=== PATIENT | female | born 1990 | race Caucasian/White ===

== ENCOUNTER 2019-05-26 12:41 | Emergency (ER) | payer SELFPAY ==
[~2019-05-26] VITALS: Ht 154.9 cm; Wt 81.7 kg
[~2019-05-26 12:41] MED LIST: Flagyl500 MG PO
[2019-05-26 13:29] LABS: BASOPHILS ABSOLUTE AUTO 0.04 K/mm3 (0.00-0.23); BASOPHILS PERCENT AUTO 1 % (0-2); EOSINOPHILS ABSOLUTE AUTO 0.01 K/mm3 (0.00-0.68); EOSINOPHILS PERCENT AUTO 0 % (0-6); Hemoglobin 14.8 g/dL (11.5-16.0); IMMATURE GRAN ABSOLUTE AUTO 0.01 K/mm3 (0.00-0.10); IMMATURE GRAN PERCENT AUTO 0 % (0-1); LYMPHOCYTES ABSOLUTE AUTO 1.41 K/mm3 (0.84-5.20); LYMPHOCYTES PERCENT AUTO 18 % (21-46); MONOCYTES ABSOLUTE AUTO 0.49 K/mm3 (0.16-1.47); MONOCYTES PERCENT AUTO 6 % (4-13); Mean Corpuscular HGB 29.1 pg (26.0-34.0); Mean Corpuscular HGB Conc 32.2 g/dL (31.5-36.5); Mean Corpuscular Volume 91 fL (80-100); Mean Platelet Volume 10.3 fL (9.1-12.4); NEUTROPHILS ABSOLUTE AUTO 5.96 K/mm3 (1.96-9.15); NEUTROPHILS PERCENT AUTO 75 % (41-73); Platelet Count 294 K/mm3 (150-400); RDW Coefficient Variation 12.8 % (11.7-14.2); RDW Standard Deviation 42.3 fL (35.1-46.3); Red Blood Cell Count 5.08 M/mm3 (3.80-5.20); White Blood Cell Count 7.92 K/mm3 (4.00-11.30)
[2019-05-26 13:45] LABS: Source, Urine Clean Catch
[2019-05-26 13:48] LABS: Bilirubin, Urine Neg (Neg); Blood, Urine 5+ (Neg); Glucose Qualitative, Urine Neg (Neg); Ketones, Urine 1+ (Neg); Leukocyte Esterase, Urine 3+ (Neg); Nitrite, Urine Neg (Neg); Protein, Urine 3+ (Neg); Specific Gravity, Urine 1.025 (1.003-1.022); Urobilinogen, Urine NORM (Normal)
[2019-05-26 13:57] LABS: Beta HCG, Quantitative, Serum 134 mIU/mL (0-3)
[2019-05-26 13:58] LABS: Alanine Aminotransfer (ALT/SGP 51 U/L (12-78); Albumin, Blood 4.1 g/dL (3.4-5.0); Albumin/Globulin Ratio 0.9 (0.8-1.8); Alk Phos 89 U/L (50-136); Anion Gap 8 mmol/L (6-16); Aspartate Aminotrans (AST/SGOT 25 U/L (12-37); Blood Urea Nitrogen 7 mg/dL (8-24); Bun/Creatinine Ratio 11.3 (12.0-20.0); CO2, Blood 25 mmol/L (21-32); Calcium, Blood 9.7 mg/dL (8.5-10.1); Chloride, Blood 110 mmol/L (98-108); Creatinine, Blood 0.62 mg/dL (0.40-1.00); Globulin, Blood 4.6 g/dL (2.2-4.0); Glomerular Filtration Rate >60 (60-); Glucose, Blood 92 mg/dL (70-99); Potassium, Blood 3.6 mmol/L (3.5-5.5); Sodium, Blood 143 mmol/L (136-145); Total Protein, Blood 8.7 g/dL (6.4-8.2)
[2019-05-26 14:06] LABS: Appearance, Urine Bloody (Clear); Color, Urine Red (P-Yellow)
[2019-05-26 14:08] LABS: Bacteria Mod /hpf; Red Blood Cells, Urine TNTC /hpf (0-2); Squamous Epithelial Cells Few /hpf (Few); White Blood Cells, Urine 50-100 /hpf (0-5)
[2019-05-26] MEDS ORDERED: IBUP600 PO (14:46)
== END 2019-05-26 14:52 | disposition home or self-care (01) ==
LOC: ER 12:41
PROVIDERS: Physician Assistant
DX: O03.9 Complete or unspecified spontaneous abortion without complication (principal); O02.81 Inappropriate change in quantitative human chorionic gonadotropin (hCG) in early pregnancy
CPT/HCPCS: 36415; 76801; 76817; 80053; 81001; 81025; 84702; 85025; 87086; 99284-25

== ENCOUNTER → 2020-04-03 | Outpatient (CLI) | payer SELFPAY ==
[~2020-04-03] MED LIST changes: +IBUP600 PO
== END | disposition home or self-care (01) ==
LOC: LAB EV 12:40 → LAB SHORT 12:40
DX: R07.9 Chest pain, unspecified (principal)
CPT/HCPCS: 85379

== ENCOUNTER → 2025-01-04 | Outpatient (CLI) | payer OTHER ==
[2025-01-04 14:39] LABS: BASOPHILS ABSOLUTE AUTO 0.02 K/mm3 (0.00-0.23); BASOPHILS PERCENT AUTO 0 % (0-2); EOSINOPHILS ABSOLUTE AUTO 0.02 K/mm3 (0.00-0.68); EOSINOPHILS PERCENT AUTO 0 % (0-6); Hematocrit 39.8 % (33.0-51.0); Hemoglobin 13.5 g/dL (11.5-16.0); IMMATURE GRAN ABSOLUTE AUTO 0.03 K/mm3 (0.00-0.10); IMMATURE GRAN PERCENT AUTO 0 % (0-1); LYMPHOCYTES ABSOLUTE AUTO 1.31 K/mm3 (0.84-5.20); LYMPHOCYTES PERCENT AUTO 15 % (21-46); MONOCYTES ABSOLUTE AUTO 0.38 K/mm3 (0.16-1.47); MONOCYTES PERCENT AUTO 4 % (4-13); Mean Corpuscular HGB Conc 33.9 g/dL (31.5-36.5); Mean Corpuscular Volume 87 fL (80-100); NEUTROPHILS ABSOLUTE AUTO 7.21 K/mm3 (1.96-9.15); NEUTROPHILS PERCENT AUTO 81 % (41-73); NRBC ABSOLUTE 0.00 K/mm3 (0.00-0.02); NRBC Auto 0.0 /100 WBC (0.0-0.2); Platelet Count 277 K/mm3 (150-400); RDW Coefficient Variation 13.1 % (11.7-14.2); RDW Standard Deviation 40.9 fL (35.1-46.3)
[2025-01-04 14:49] LABS: Alanine Aminotransfer (ALT/SGP 63.0 U/L (12-78); Albumin, Blood 3.8 g/dL (3.4-5.0); Albumin/Globulin Ratio 1.0 (0.8-1.8); Anion Gap 15.0 mmol/L (3-11); Aspartate Aminotrans (AST/SGOT 40.0 U/L (12-37); Bilirubin, Total 1.3 mg/dL (0.1-1.0); Blood Urea Nitrogen 8.0 mg/dL (8-24); CO2, Blood 25.0 mmol/L (21-32); Calcium, Blood 9.3 mg/dL (8.5-10.1); Chloride, Blood 104.0 mmol/L (98-108); Creatinine, Blood 0.69 mg/dL (0.40-1.00); Globulin, Blood 4.0 g/dL (2.2-4.0); Glucose, Blood 130.0 mg/dL (70-99); Potassium, Blood 3.8 mmol/L (3.5-5.5); Sodium, Blood 140.0 mmol/L (136-145); Total Protein, Blood 7.8 g/dL (6.4-8.2)
== END | disposition home or self-care (01) ==
LOC: LAB SHORT 14:35 → LAB 14:35
PROVIDERS: Physician Assistant Medical
DX: R00.0 Tachycardia, unspecified (principal)
CPT/HCPCS: 80053; 85025

== ENCOUNTER → 2025-01-15 | Outpatient (CLI) | payer OTHER ==
[2025-01-15 18:09] LABS: Alanine Aminotransfer (ALT/SGP 47.0 U/L (12-78); Albumin, Blood 4.3 g/dL (3.4-5.0); Albumin/Globulin Ratio 1.0 (0.8-1.8); Anion Gap 15.0 mmol/L (3-11); Aspartate Aminotrans (AST/SGOT 26.0 U/L (12-37); Bilirubin, Total 1.0 mg/dL (0.1-1.0); Blood Urea Nitrogen 12.0 mg/dL (8-24); CO2, Blood 25.0 mmol/L (21-32); Calcium, Blood 9.5 mg/dL (8.5-10.1); Chloride, Blood 103.0 mmol/L (98-108); Creatinine, Blood 0.6 mg/dL (0.40-1.00); Globulin, Blood 4.2 g/dL (2.2-4.0); Glucose, Blood 96.0 mg/dL (70-99); Potassium, Blood 3.6 mmol/L (3.5-5.5); Sodium, Blood 139.0 mmol/L (136-145); Thyroid Stimulating Hormone 2.421 uIU/mL (0.360-4.800); Total Protein, Blood 8.5 g/dL (6.4-8.2)
[2025-01-15 20:21] LABS: Ferritin, Serum 51.0 ng/mL (8-252); Total Iron Binding Capacity 416.0 ug/dL (250-450)
== END ==
LOC: LAB SHORT 17:46 → LAB 17:46
PROVIDERS: Physician Assistant
DX: R73.9 Hyperglycemia, unspecified (principal); R00.2 Palpitations; N92.0 Excessive and frequent menstruation with regular cycle
CPT/HCPCS: 80053; 82728; 83036; 83540; 83550; 84443

== ENCOUNTER 2025-01-26 09:48 | Emergency (ER) | payer OTHER ==
[~2025-01-26] VITALS: Ht 147.3 cm; Wt 108.9 kg
[2025-01-26] MEDS ORDERED: Ketorolac Tromethamine 30mg Vial IV ONE (09:55)
[2025-01-26] MEDS ORDERED: Prochlorperazine Edisylate 10 mg Vial IV ONE (10:00)
[2025-01-26] MEDS ORDERED: DiphenhydrAMINE HCl 50 MG/ML 1ML Vial IV ONE (10:00)
[2025-01-26 10:21] LABS: BASOPHILS ABSOLUTE AUTO 0.03 K/mm3 (0.00-0.23); BASOPHILS PERCENT AUTO 1 % (0-2); EOSINOPHILS ABSOLUTE AUTO 0.01 K/mm3 (0.00-0.68); EOSINOPHILS PERCENT AUTO 0 % (0-6); Hematocrit 40.9 % (33.0-51.0); Hemoglobin 13.7 g/dL (11.5-16.0); IMMATURE GRAN ABSOLUTE AUTO 0.00 K/mm3 (0.00-0.10); IMMATURE GRAN PERCENT AUTO 0 % (0-1); LYMPHOCYTES ABSOLUTE AUTO 1.62 K/mm3 (0.84-5.20); LYMPHOCYTES PERCENT AUTO 27 % (21-46); MONOCYTES ABSOLUTE AUTO 0.22 K/mm3 (0.16-1.47); MONOCYTES PERCENT AUTO 4 % (4-13); Mean Corpuscular HGB Conc 33.5 g/dL (31.5-36.5); Mean Corpuscular Volume 87 fL (80-100); NEUTROPHILS ABSOLUTE AUTO 4.08 K/mm3 (1.96-9.15); NEUTROPHILS PERCENT AUTO 68 % (41-73); NRBC ABSOLUTE 0.00 K/mm3 (0.00-0.02); NRBC Auto 0.0 /100 WBC (0.0-0.2); Platelet Count 337 K/mm3 (150-400); RDW Coefficient Variation 12.7 % (11.7-14.2); RDW Standard Deviation 40.6 fL (35.1-46.3)
[2025-01-26 10:41] LABS: Alanine Aminotransfer (ALT/SGP 47.0 U/L (12-78); Albumin, Blood 3.9 g/dL (3.4-5.0); Albumin/Globulin Ratio 1.0 (0.8-1.8); Anion Gap 8.0 mmol/L (3-11); Aspartate Aminotrans (AST/SGOT 26.0 U/L (12-37); Bilirubin, Total 1.0 mg/dL (0.1-1.0); Blood Urea Nitrogen 8.0 mg/dL (8-24); CO2, Blood 25.0 mmol/L (21-32); Calcium, Blood 9.0 mg/dL (8.5-10.1); Chloride, Blood 109.0 mmol/L (98-108); Creatinine, Blood 0.71 mg/dL (0.40-1.00); Globulin, Blood 4.1 g/dL (2.2-4.0); Glucose, Blood 125.0 mg/dL (70-99); Potassium, Blood 3.7 mmol/L (3.5-5.5); Sodium, Blood 138.0 mmol/L (136-145); Total Protein, Blood 8.0 g/dL (6.4-8.2)
[2025-01-26] MEDS ORDERED: PROM25 PO (11:48)
[2025-01-26 11:59] VITALS: BP 128/85
== END 2025-01-26 11:59 | disposition home or self-care (01) ==
LOC: ER 09:48
PROVIDERS: Emergency Medicine
DX: R51.9 Headache, unspecified (principal); Z88.8 Allergy status to other drugs, medicaments and biological substances; Z88.2 Allergy status to sulfonamides; Z88.5 Allergy status to narcotic agent
CPT/HCPCS: 80053; 84703; 85025; 93005; 93010; 96374; 96375; 99283-25; J0780; J1200; J1885

== ENCOUNTER 2025-02-05 10:26 | Emergency (ER) | payer OTHER ==
[~2025-02-05] VITALS: Ht 147.3 cm; Wt 108.9 kg
[~2025-02-05 10:26] MED LIST changes: +PROM25 PO
[2025-02-05 11:34] VITALS: BP 153/105
[2025-02-05] MEDS ORDERED: Dexamethasone Sod Phos 10 MG/ML 1ML VIAL PO ONE (12:35)
[2025-02-05] MEDS ORDERED: Ketorolac Tromethamine 15mg Vial IM ONE (12:35)
[2025-02-05] MEDS ORDERED: METO10 PO (12:37)
== END 2025-02-05 12:53 | disposition home or self-care (01) ==
LOC: ER 10:26
DX: R51.9 Headache, unspecified (principal); Z88.8 Allergy status to other drugs, medicaments and biological substances; Z88.1 Allergy status to other antibiotic agents
CPT/HCPCS: 70450; 96372; 99284-25; J1100; J1885